=== PATIENT | male | born 1945 | race Caucasian/White ===

== ENCOUNTER 2016-08-17 09:08 | Day surgery (SDC) | payer MEDICARE, OTHER ==
[~2016-08-17 09:08] MED LIST: CHONDR SU A NA/HYALUR INTRAOC KIT (SURGICARE) ONE; KETOROLAC TROMETHAMINE 0.45% 4 DROP/0.4 ML DROPERETTE OD PRN; LIDOCAINE 1% INJ-PF (10 MG/ML) 30 ML SDV ONE; PHENYLEPHRINE/KETOROLAC 1%-0.3% 4 ML VIAL ONE
[2016-08-17] MEDS ORDERED: MIDAZOLAM 2 MG/2 ML INJ ONE (09:48)
[2016-08-17] MEDS: TROPICAMIDE 1% OPH SOLN 3 ML OD PRN ×3 (09:49→10:20)
[2016-08-17] MEDS: CYCLOPENTOLATE 0.2%/PHENYLEPHRINE 1% OPH SOLN 2 ML OD PRN ×3 (09:49→10:19)
[2016-08-17] MEDS: BESIFLOXACIN HCL 0.6% OPH SUSP 5 ML BOTTLE OD PRN ×3 (09:50→10:54)
[2016-08-17] MEDS: TETRACAINE HCL 0.5% OPH SOLN 2 ML OD PRN ×4 (09:52→10:29)
--- NOTE | 2016-08-17 13:02 | [facility] DISCHARGE SUMMARY E ---
[facility] Discharge Summary NAME: EMILIE SMITH AGE: 71Y ADMITTED: 08/17/2016 DISCHARGED: 08/17/2016 HOSPITAL COURSE: This is a 71-year-old male who underwent cataract extraction of the right eye. DIAGNOSIS: Cataract, right eye. INDICATIONS: He underwent surgery because he was having trouble seeing words on the TV and road signs. DISCHARGE INSTRUCTIONS: He should be on a regular diet. No bending at his waist. No heavy lifting. He should use his Besivance, Ilevro, and Durezol at 3 p.m. and 8 p.m. and sleep with a rigid shield. I will see him for his 1 day postoperative tomorrow. DICTATING PHYSICIAN: NIKOLAS CABEZAS M.D. [id number] [id number] PHY#: [id number] ID: [id number] JOB#: [id number] ACCT: [id number] cc:NIKOLAS CABEZAS M.D. >
--- NOTE | 2016-08-17 13:02 | [facility] OPERATIVE REPORT E ---
[facility] Operative Report NAME: EMILIE SMITH AGE: 71Y DATE OF SURGERY: 08/17/2016 ROOM: PREOPERATIVE DIAGNOSIS: Cataract, right eye. POSTOPERATIVE DIAGNOSIS: Cataract, right eye. OPERATION: Cataract extraction with intraocular lens implant of the right eye. SURGEON: NIKOLAS CABEZAS M.D. ANESTHESIA: Topical. PROCEDURE: After obtaining appropriate consent, the patient's right eye was prepped and draped in sterile fashion as well as the surgeon in a sterile manner and cataract surgery was started. First a paracentesis blade was used to make a small side-port incision. Viscoelastic was used to inflate the anterior chamber. Next a 2.4 mm incision was made with the paracentesis blade. A continuous capsulorrhexis incision was made using a cystotome and Utrata forceps. Following this hydrodissection was carried out to make the lens fully loose and mobile and it was rotated 90 degrees. Following this, a sfznzz-szr-rimqgse technique was used to phacoemulsify the lens with a CDE of 4.94. The remaining cortex was removed with irrigation/aspiration. Provisc was instilled into the capsular bag to inflate the bag. A SN60WF, 21.5 diopter lens was placed. The remaining viscoelastic material was removed with irrigation/aspiration. Following this, a 10-0 nylon suture was used to close the incision and it was found to be watertight. Vigamox was instilled in the eye and a protective shield was placed over the eye. The patient returned to the postoperative recovery in stable condition. DICTATING PHYSICIAN: NIKOLAS CABEZAS M.D. 1211M [id number] PHY#: [id number] ID: [id number] JOB#: [id number] ACCT: [id number] cc:NIKOLAS CABEZAS M.D. >
== END 2016-08-17 11:45 | disposition home or self-care (01) ==
LOC: SC 09:08
PROVIDERS: ATTEND Internal Medicine
PROC: 08RK3JZ Replacement of Left Lens with Synthetic Substitute, Percutaneous Approach (ICD-10-PCS; principal; 2016-08-17 10:30)
DX: H25.813 Combined forms of age-related cataract, bilateral (principal); H57.03 Miosis; E11.9 Type 2 diabetes mellitus without complications; M10.9 Gout, unspecified; R00.8 Other abnormalities of heart beat; Z79.84 Long term (current) use of oral hypoglycemic drugs; Z88.0 Allergy status to penicillin; Z79.82 Long term (current) use of aspirin; I10 Essential (primary) hypertension; Z79.899 Other long term (current) drug therapy
CPT/HCPCS: 66984; 82962; V2632; J2250; J3490 ×2; A9270; C9447; 142

== ENCOUNTER 2016-09-07 07:06 | Day surgery (SDC) | payer MEDICARE, OTHER ==
[~2016-09-07 07:06] MED LIST changes: -CHONDR SU A NA/HYALUR INTRAOC KIT (SURGICARE) ONE; -KETOROLAC TROMETHAMINE 0.45% 4 DROP/0.4 ML DROPERETTE OD PRN; +KETOROLAC TROMETHAMINE 0.45% 4 DROP/0.4 ML DROPERETTE OS PRN; -LIDOCAINE 1% INJ-PF (10 MG/ML) 30 ML SDV ONE; -PHENYLEPHRINE/KETOROLAC 1%-0.3% 4 ML VIAL ONE
[2016-09-07] MEDS ORDERED: CHONDR SU A NA/HYALUR INTRAOC KIT (SURGICARE) ONE (07:52)
[2016-09-07] MEDS ORDERED: PHENYLEPHRINE/KETOROLAC 1%-0.3% 4 ML VIAL ONE (07:52)
[2016-09-07] MEDS ORDERED: LIDOCAINE 1% INJ-PF (10 MG/ML) 30 ML SDV ONE (07:52)
[2016-09-07] MEDS: TROPICAMIDE 1% OPH SOLN 3 ML OS PRN ×3 (07:55→08:15)
[2016-09-07] MEDS: BESIFLOXACIN HCL 0.6% OPH SUSP 5 ML BOTTLE OS PRN ×4 (07:55→08:58)
[2016-09-07] MEDS: CYCLOPENTOLATE 0.2%/PHENYLEPHRINE 1% OPH SOLN 2 ML OS PRN ×3 (07:55→08:15)
[2016-09-07] MEDS: TETRACAINE HCL 0.5% OPH SOLN 2 ML OS PRN ×2 (07:56→08:35)
[2016-09-07] MEDS ORDERED: MIDAZOLAM 2 MG/2 ML INJ ONE (08:14)
--- NOTE | 2016-09-08 07:28 | [facility] DISCHARGE SUMMARY E ---
[facility] Discharge Summary NAME: EMILIE SMITH AGE: 71Y ADMITTED: 09/07/2016 DISCHARGED: 09/07/2016 HISTORY OF PRESENT ILLNESS AND HOSPITAL COURSE: This is a 71-year-old male who underwent cataract extraction of the left eye. DIAGNOSIS: Cataract, left eye. HOSPITAL COURSE: He underwent surgery because he had difficulty reading with his left eye and difficulty driving due to glare. DISCHARGE INSTRUCTIONS: 1. He should be on a regular diet. 2. No bending at his waist and no heavy lifting. 3. He should use Besivance, Ilevro, and Durezol at 3 p.m. and 8 p.m. and sleep with a rigid shield. 4. I will see him for his 1-day postoperative tomorrow. DICTATING PHYSICIAN: NIKOLAS CABEZAS M.D. 1272M [id number] PHY#: [id number] ID: [id number] JOB#: [id number] ACCT: [id number] cc:NIKOLAS CABEZAS M.D. >
--- NOTE | 2016-09-08 07:28 | [facility] OPERATIVE REPORT E ---
[facility] Operative Report NAME: EMILIE SMITH AGE: 71Y DATE OF SURGERY: 09/07/2016 ROOM: PREOPERATIVE DIAGNOSIS: Cataract, left eye. POSTOPERATIVE DIAGNOSIS: Cataract, left eye. OPERATION: Cataract extraction with intraocular lens implant of the left eye. SURGEON: NIKOLAS CABEZAS M.D. ANESTHESIA: Topical. PROCEDURE: After obtaining appropriate consent, the patient's left eye was prepped and draped in sterile fashion as well as the surgeon in a sterile manner and cataract surgery was started. First a paracentesis blade was used to make a small side-port incision. Viscoelastic was used to inflate the anterior chamber. Next a 2.4 mm incision was made with the paracentesis blade. A continuous capsulorrhexis incision was made using a cystotome and Utrata forceps. Following this hydrodissection was carried out to make the lens fully loose and mobile and it was rotated 90 degrees. Following this, a wfxxta-xnc-xhtohcl technique was used to phacoemulsify the lens with a CDE of 5.75. The remaining cortex was removed with irrigation/aspiration. Provisc was instilled into the capsular bag to inflate the bag. A SN60WF, 21.0 diopter lens was placed. The remaining viscoelastic material was removed with irrigation/aspiration. Following this, a 10-0 nylon suture was used to close the incision and it was found to be watertight. Vigamox was instilled in the eye and a protective shield was placed over the eye. The patient returned to the postoperative recovery in stable condition. DICTATING PHYSICIAN: NIKOLAS CABEZAS M.D. 1272M [id number] PHY#: [id number] ID: [id number] JOB#: [id number] ACCT: [id number] cc:NIKOLAS CABEZAS M.D. >
== END 2016-09-07 09:46 | disposition home or self-care (01) ==
LOC: SC 07:06
PROVIDERS: ATTEND Internal Medicine
PROC: 08RK3JZ Replacement of Left Lens with Synthetic Substitute, Percutaneous Approach (ICD-10-PCS; principal; 2016-09-07 08:30)
DX: H25.812 Combined forms of age-related cataract, left eye (principal); H57.03 Miosis; Z96.1 Presence of intraocular lens; E11.9 Type 2 diabetes mellitus without complications; M10.9 Gout, unspecified; Z79.84 Long term (current) use of oral hypoglycemic drugs; Z88.0 Allergy status to penicillin; Z79.01 Long term (current) use of anticoagulants; Z87.891 Personal history of nicotine dependence
CPT/HCPCS: 66984; 82962; V2632; J2250; J3490 ×2; A9270; C9447; 142